=== PATIENT | male | born 1980 | race Caucasian/White ===

== ENCOUNTER 2017-08-07 23:06 | Emergency (ER) | payer OTHER ==
[2017-08-08] MEDS: CLINDAMYCIN 300 MG INJ IM (03:52)
[2017-08-08] MEDS: LIDOCAINE 1% (MDV) 20 ML INJ SC (03:52)
== END 2017-08-08 05:02 | disposition home or self-care (01) ==
LOC: FTE 08-08 05:02
DX: L05.01 Pilonidal cyst with abscess (principal); E11.9 Type 2 diabetes mellitus without complications
CPT/HCPCS: 10080; 96372; 99284-25

== ENCOUNTER 2017-08-12 10:42 | Emergency (ER) | payer OTHER | END 2017-08-12 14:35 | disposition left against medical advice (07) | LOC: FTE 14:35 | DX: Z48.01 Encounter for change or removal of surgical wound dressing (principal); E11.9 Type 2 diabetes mellitus without complications | CPT/HCPCS: 99281; Z7502 ==

== ENCOUNTER 2018-02-13 03:26 | Emergency (ER) | payer OTHER ==
[2018-02-13] MEDS: CLINDAMYCIN 300 MG INJ IM (04:05)
[2018-02-13] MEDS: LIDOCAINE 1% (MDV) 10 ML INJ INFIL (04:05)
== END 2018-02-13 04:44 | disposition home or self-care (01) ==
LOC: FTE 03:26
DX: L05.01 Pilonidal cyst with abscess (principal)
CPT/HCPCS: 10080; 96372; 99284-25